=== PATIENT | male | born 2000 | race Caucasian/White ===

== ENCOUNTER 2022-03-31 16:32 | Emergency (ER) | payer MEDICAID ==
[~2022-03-31] VITALS: Ht 190.5 cm; Wt 81.6 kg
[2022-03-31] MEDS ORDERED: TDAP [DIPH/PERTUSSIS/TET] 0.5 ML VIAL IM ONE ×2 (17:30→18:18)
--- NOTE | 2022-03-31 18:28 | NUR ---
tdap given right deltoid im, judie well
--- NOTE | 2022-03-31 19:45 | NUR ---
Patient discharged to home in stable condition. Written and verbal after care instructions given. Patient verbalizes understanding of instruction.
[2022-03-31 19:46] VITALS: BP 129/69
== END 2022-03-31 19:46 | disposition home or self-care (01) ==
LOC: ER 16:34
DX: S01.81XA Laceration without foreign body of other part of head, initial encounter (principal); V28.09XA Other motorcycle driver injured in noncollision transport accident in nontraffic accident, initial encounter; Y93.89 Activity, other specified; Y92.59 Other trade areas as the place of occurrence of the external cause; Y99.8 Other external cause status
CPT/HCPCS: 99284; 72125; 90471; 90715; 70450; A6403